=== PATIENT | male | born 1990 | race Caucasian/White ===

== ENCOUNTER → 2018-09-18 | Outpatient (CLI) | payer BC ==
--- NOTE | 2018-09-19 04:58 | CONS ---
CONSULTATION A 28-year-old male patient coming in with symptoms of loud snoring, excessive fatigue and tiredness and sleepiness and dry mouth along with excessive fatigue during the day. He goes to bed around 10:30 p.m. to midnight and wakes up between 6:30 a.m. and 7:00 in the morning. 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 His weight has been stable. No recent weight gain or weight loss, [place] score is at 13. No substance abuse. No head trauma. His snoring gets worse whenever he drinks alcohol. He drinks 1 to 2 cups of coffee during the day. He feels tired all the time. PAST MEDICAL HISTORY: Hypothyroidism on thyroid hormone replacement, hyperlipidemia. PAST SURGICAL HISTORY: Past surgical history includes tonsillectomy and surgery for broken nose. DRUG ALLERGIES: Drug allergies are not known. OUTPATIENT MEDICATION LIST: Outpatient medication list includes Synthroid, Lexapro and Crestor. SOCIAL HISTORY: Nonsmoker. Drinks alcohol socially. No history of substance abuse. FAMILY HISTORY: Negative for sleep apnea. REVIEW OF SYSTEMS: Fourteen-point review of system was done. No sleep paralysis. No hallucinations. No cataplexy. No anxiety. No depression. No panic. No palpitation. No heartburn. No restlessness of lower extremities. No claustrophobia. No sexual dysfunction. PHYSICAL EXAMINATION: BP is 123/63, pulse 72, respirations 16, temperature 98.2 saturation 96% on room air. Height 5 feet 7 inches, weight is 230 and neck size 18-1/2 inches. General Appearance: Calm, comfortable. HEAD: Atraumatic, normocephalic. NECK: Supple. Mallampati class IV. There is no goiter or neck masses. LUNGS: Diminished otherwise clear. HEART: Sounds regular rate and rhythm. Normal S1, S2. No murmurs. ABDOMEN: Soft, nontender. No organomegaly. EXTREMITIES: No edema, cyanosis or clubbing. NEUROLOGIC: Alert and oriented x3. No focal neurological deficits. PSYCHIATRICALLY: Negative for anxiety or depression. IMPRESSION: 1. Chronic fatigue and sleepiness. [place] score of 13. Overall suspicion for sleep apnea is high based on his symptoms and anatomic features. The patient has loud snoring. Mallampati class 4. Sleep fragmentation, excessive tiredness and sleepiness during the day. 2. Hypothyroidism. 3. Hyperlipidemia. PLAN: 1. Encourage weight loss. 2. Proceed with a screening polysomnogram to investigate the patient for sleep apnea and treat accordingly. 3. We will continue to follow and make further recommendations. MMODL / IJN: [id number] /
== END | disposition home or self-care (01) ==
LOC: SLEEP 16:28
PROVIDERS: ATTEND Internal Medicine Critical Care Medicine
DX: G47.10 Hypersomnia, unspecified (principal); R53.82 Chronic fatigue, unspecified; E03.9 Hypothyroidism, unspecified; E78.5 Hyperlipidemia, unspecified; Z79.899 Other long term (current) drug therapy
CPT/HCPCS: 99201

== ENCOUNTER → 2022-12-01 | Outpatient (CLI) | payer BC ==
[2022-12-01 23:08] LABS: Basophils # (A) 0.05 X 10*3/uL (0.00-0.10); Eosinophils # (A) 0.13 X 10*3/uL (0.04-0.35); Eosinophils % (A) 2.5 %; HCT 48.2 % (39.6-50.0); HGB 15.9 d/dL (13.0-17.0); Lymphocytes # (A) 1.91 X 10*3/uL (0.90-5.00); Lymphocytes % (A) 36.3 %; MCH 32.1 pg (27.0-32.0); MCV 97.2 FL (80.0-97.0); Monocytes # (A) 0.41 X 10*3/uL (0.20-1.00); Monocytes % (A) 7.8 %; NRBC Per 100 WBC 0 X 10*3/uL (0.00-0.01); Neutrophils # (A) 2.73 X 10*3/uL (1.80-7.70); Neutrophils % (A) 51.8 %; Platelet Count 278 X 10*3/uL (140-440); RBC 4.96 X 10*6/uL (4.40-5.60); RDW 12.9 % (11.5-14.5); WBC 5.26 X 10*3/uL (4.50-10.00)
== END | disposition home or self-care (01) ==
LOC: LABPAT 12:16
PROVIDERS: ATTEND Surgery
DX: Z01.818 Encounter for other preprocedural examination (principal); K46.9 Unspecified abdominal hernia without obstruction or gangrene; R94.31 Abnormal electrocardiogram [ECG] [EKG]
CPT/HCPCS: 85025; 93005

== ENCOUNTER 2022-12-06 05:35 | Day surgery (SDC) | payer BC ==
[2022-12-01 10:19] VITALS: BMI 38.3
[~2022-12-06 05:35] MED LIST: ACETAMINOPHEN TAB 500 MG TAB PO PRN; HEPARIN SODIUM,PORCINE/PF 5,000 UNIT/0.5 ML SYRINGE SQ PRN
[2022-12-06] MEDS ORDERED: ONDANSETRON 4 MG/2 ML VIAL IVP ONE (05:47)
[2022-12-06] MEDS ORDERED: DEXAMETHASONE SOD PHOSPHATE 4 MG/ML 1 ML VIAL IV ONE (05:47)
[2022-12-06] MEDS ORDERED: LACTATED RINGERS 1,000 ML IV SCH (05:47)
[2022-12-06] MEDS ORDERED: LIDOCAINE 1% (10MG/ML) FOR IV START INTRADERMA PRN (05:47)
[2022-12-06] MEDS ORDERED: fentaNYL (PF) 50 MCG/1 ML VIAL IVP ONE (06:42)
[2022-12-06] MEDS ORDERED: MIDAZOLAM 2 MG/2 ML VIAL IVP ONE (06:43)
[2022-12-06] MEDS ORDERED: MIDAZOLAM 2 MG/2 ML VIAL IV PRN (07:00)
[2022-12-06] MEDS ORDERED: HYDROmorphone 0.5 MG/0.5 ML SYRINGE IVP PRN (07:00)
[2022-12-06] MEDS ORDERED: LACTATED RINGERS 1,000 ML IV ONE (07:05)
[2022-12-06] MEDS ORDERED: SUCCINYLCHOLINE CHLORIDE 200 MG/10 ML VIAL IV ONE (07:23)
[2022-12-06] MEDS ORDERED: GLYCOPYRROLATE 0.2 MG/ML 2 ML VIAL ONE (07:23)
[2022-12-06] MEDS ORDERED: PROPOFOL 10 MG/ML 20 ML VIAL IV ONE (07:23)
[2022-12-06] MEDS ORDERED: KETOROLAC 15 MG/ML 1 ML VIAL ONE (07:23)
[2022-12-06] MEDS ORDERED: HYDROmorphone (PF) 1 MG/ML ONE (07:23)
[2022-12-06] MEDS ORDERED: NEOSTIGMINE 1 MG/ML 10 ML VIAL ONE (07:23)
[2022-12-06] MEDS ORDERED: MIDAZOLAM 2 MG/2 ML VIAL ONE (07:23)
[2022-12-06] MEDS ORDERED: ROCURONIUM 10 MG/ML (5 ML VIAL) IV ONE (07:23)
[2022-12-06] MEDS ORDERED: fentaNYL (PF) 50 MCG/ML 2 ML AMP ONE (07:23)
[2022-12-06] MEDS ORDERED: LIDOCAINE 2% INJ 20 MG/ML (2 ML VIAL) ONE (07:23)
[2022-12-06] MEDS ORDERED: ROPIVACAINE 5 MG/ML 30 ML VIAL ONE (07:23)
[2022-12-06] MEDS ORDERED: SODIUM CHLORIDE 0.9% (PF) 10 ML VIAL ONE (07:23)
[2022-12-06] MEDS ORDERED: KETAMINE 10 MG/ML 20 ML VIAL ONE (07:23)
[2022-12-06] MEDS ORDERED: BUPIVACAINE (PF) 0.25% 30 ML VIAL SQ ONE (07:59)
[2022-12-06 08:37] VITALS: TEMP 98
--- NOTE | 2022-12-06 08:40 | P.ANPRN ---
Procedure Note - Anesthesia - Nerve Block Performed Bilateral Erector Spinae Time Out Performed: Yes (06:42) Date of Procedure: 12/06/22 Procedure Start Time: : Procedure Stop Time: :48 Location of Patient: PreOp Indication: Acute Post-Operative Pain, Requested by Surgeon (Dr Aceves) Sedation Type: Sedate with meaningful contact maintained Preparation: Sterile Prep Position: Prone Catheter: None Needle Types: Pajunk Needle Gauge: 21 Ultrasound used to visualize needle placement: Yes Ultrasound used to observe medication spread: Yes Injectate: 0.5% Ropivacaine (see comment for volume) (15cc +10cc PF Normal saline each side) Blood Aspirated: No Pain Paresthesia on Injection Noted: No Resistance on Injection: Normal Image Stored and Saved: Yes Events: Uneventful and Well Tolerated
--- NOTE | 2022-12-06 08:47 | P.OP ---
Date of Procedure: 12/06/22 Preoperative Diagnosis: Right inguinal hernia Postoperative Diagnosis: Right inguinal hernia Procedure(s) Performed: Transversus abdominis plane block Laparoscopic robotic-assisted repair of right inguinal hernia Excision of right cord lipoma Anesthesia: KEENAN Surgeon: Elias Aceves Estimated Blood Loss (ml): 5 Pathology: other (Right cord lipoma) Condition: stable Disposition: PACU Description of Procedure: The patient's placed on the operating table in the supine position. The patient received general anesthesia. The patient's abdomen was prepped and draped in usual sterile fashion. The skin was anesthetized 1% local Xylocaine at the incision sites. Using an 11 blade a skin incision was made at the umbilicus. The fascia was grasped with a [place] and then the peritoneal cavity was entered with the Veress needle. Position of the Veress needle was confirmed with a positive drop test. After adequate insufflation a 5 mm trocar was placed into the peritoneal cavity. The Laparoscope was placed the peritoneal cavity. And a robotic 8 mm trocar was placed in the right lateral position and then another 8 mm robotic trochars placed in the left lateral position. The original 5 mm trocar was exchanged for a 12 mm trocar. A four-quadrant transverse plane block was performed using 1% local Xylocaine. The patient was placed in reverse Trendelenburg and then the patient was docked to the robot. Next the peritoneum over top of the hernia was incised and then using blunt and sharp dissection and electrocautery the hernia sac was dissected free from the floor of the inguinal canal. The cord lipoma was dissected free sent to pathology. The hernia sac was completely reduced into the peritoneal cavity. And then using the [employer] historian dramatic arts mesh the hernia was repaired. The peritoneum was then sutured with 20V lock suture. The patient was then undocked the robot. The needle was withdrawn from the peritoneal cavity. The umbilical trocar site was closed with 0 Ethibond suture. The skin was closed interrupted 3-0 Monocryl suture. Dermabond dressing was applied. Patient was sent to recovery in stable condition.
[2022-12-06 09:21] VITALS: BP 120/75; PULSE 84; RESP 17
== END 2022-12-06 10:09 | disposition home or self-care (01) ==
LOC: OR 05:35
PROVIDERS: ATTEND Surgery
DX: K40.90 Unilateral inguinal hernia, without obstruction or gangrene, not specified as recurrent (principal); E07.9 Disorder of thyroid, unspecified; Z79.890 Hormone replacement therapy; Z79.899 Other long term (current) drug therapy
CPT/HCPCS: 49650; S2900; 64999; 86850; 86900; 86901; 88304